=== PATIENT | female | born 1935 | race Two or more races ===

== ENCOUNTER 2016-08-04 10:59 | Inpatient (IN) | payer MEDICARE, MEDICAID ==
[~2016-08-04] VITALS: Ht 172.7 cm; Wt 84.7 kg
[~2016-08-04 10:59] MED LIST: CEFAZOLIN 1,000 MG ONE; DEXAMETHASONE 4 MG/ML, 1ML ONE; ONDANSETRON 2MG/ML, 2ML ONE; PROPOFOL 10 MG/ML, 20ML ONE; SUCCINYLCHOLINE 20 MG/ML, 10ML ONE
[2016-08-04] MEDS ORDERED: AMLO5TAB4 PO (11:14)
[2016-08-04] MEDS ORDERED: GABA100C8 PO (11:15)
[2016-08-04] MEDS ORDERED: ATOR40TA78 PO (11:15)
[2016-08-04] MEDS ORDERED: LISI-170 PO (11:16)
[2016-08-04] MEDS ORDERED: INSU100V8 SQ (11:16)
[2016-08-04] MEDS ORDERED: ONDANSETRON 2MG/ML, 2ML ONE (12:12)
[2016-08-04] MEDS ORDERED: MORPHINE SULFATE 4 MG/ML, 1ML ONE ×2 (12:13→13:19)
[2016-08-04] MEDS: MORPHINE SULFATE 4 MG/ML, 1ML IVPush PRN ×2 (12:26→13:21)
[2016-08-04] MEDS ORDERED: ONDANSETRON 2MG/ML, 2ML IVPush ONE (12:30)
[2016-08-04] MEDS ORDERED: SODIUM CHLORIDE FLUSH 10ML SYR IVF ONE (12:30)
[2016-08-04 12:31] LABS: BLOOD UREA NITROGEN 26 mg/dL (7-18)
[2016-08-04] MEDS: SODIUM CHLORIDE 0.9% 1,000ML IVBOLUS ONE ×2 (13:10→14:06)
[2016-08-04] MEDS ORDERED: PLEASE ENTER ALLERGIES MC SCH ×2 (13:30)
[2016-08-04] MEDS ORDERED: ENALAPRILAT 1.25 MG/ML, 2ML IVPush PRN (15:00)
[2016-08-04] MEDS ORDERED: ONDANSETRON ODT 4 MG PO PRN (15:00)
[2016-08-04] MEDS ORDERED: BISACODYL 10 MG SUPP PR PRN (15:00)
[2016-08-04] MEDS ORDERED: morphine SULFATE 10 MG/ML, 1ML IVPush PRN (15:00)
[2016-08-04] MEDS ORDERED: FENTANYL PF 100 MCG/2ML ONE ×2 (15:22→15:38)
[2016-08-04] MEDS ORDERED: OXYcodone 5 MG/5 ML ORAL.SOL UDC PO PRN (16:00)
[2016-08-04] MEDS ORDERED: HYDROmorphone 1 MG/ML, 1ML IV PRN (16:00)
[2016-08-04] MEDS ORDERED: MIDAZOLAM 1 MG/ML, 2ML IV PRN (16:00)
[2016-08-04] MEDS ORDERED: MEPERIDINE/PF 25MG/0.5ML IVPush PRN (16:00)
[2016-08-04] MEDS ORDERED: LABETALOL 5MG/ML, 20ML IV PRN (16:00)
[2016-08-04] MEDS ORDERED: ALBUTEROL SULFATE 2.5 MG/3 ML NPPB PRN (16:00)
[2016-08-04] MEDS ORDERED: FENTANYL PF 100 MCG/2ML IV PRN (16:00)
[2016-08-04] MEDS ORDERED: PROMETHAZINE 25 MG/ML, 1ML IV PRN (16:00)
[2016-08-04] MEDS ORDERED: hydrALAzine 20 MG/ML, 1ML IV PRN (16:00)
[2016-08-04] MEDS ORDERED: ACETAMINOPHEN 325 MG TABLET PO PRN (16:00)
[2016-08-04] MEDS ORDERED: ONDANSETRON 2MG/ML, 2ML IVPush PRN (16:00)
[2016-08-04] MEDS ORDERED: ACETAMINOPHEN 650 MG/20.3 ML UDC ONE (17:07)
[2016-08-04] MEDS ORDERED: OXYcodone 5 MG/5 ML ORAL.SOL UDC ONE (17:07)
[2016-08-04] MEDS ORDERED: MEPERIDINE/PF 25MG/0.5ML ONE (17:51)
[2016-08-04] MEDS: CEFAZOLIN PMX 1GM/50ML 50 ML IV SCH (20:06)
[2016-08-04] MEDS: D5%-0.45% NACL 1,000 ML IV SCH (20:06)
[2016-08-04 20:13] VITALS: BP 124/63
[2016-08-04] MEDS: ATORVASTATIN 40 MG TABLET PO SCH (22:13)
[2016-08-04] MEDS: GABAPENTIN 100 MG CAPSULE PO SCH (22:13)
[2016-08-04] MEDS: INSULIN DETEMIR 100 UNITS/ML, PEN SQ-INSULIN SCH (22:14)
[2016-08-05] MEDS: HYDROcodone/APAP 5/325 TABLET PO PRN ×4 (00:07→22:31)
[2016-08-05 00:20] VITALS: BP 116/68
[2016-08-05 04:01] VITALS: BP 95/60
[2016-08-05] MEDS: CEFAZOLIN PMX 1GM/50ML 50 ML IV SCH ×2 (04:04→12:28)
[2016-08-05 05:34] LABS: BLOOD UREA NITROGEN 28 mg/dL (7-18)
[2016-08-05] MEDS ORDERED: ENOXAPARIN 40 MG/0.4 ML SQ SCH (06:00)
[2016-08-05] MEDS: GABAPENTIN 100 MG CAPSULE PO SCH ×4 (06:14→22:01)
[2016-08-05] MEDS: D5%-0.45% NACL 1,000 ML IV SCH (07:00)
[2016-08-05 07:40] VITALS: BP 133/67
[2016-08-05] MEDS: DOCUSATE 100 MG CAPSULE PO PRN (09:32)
[2016-08-05] MEDS: AMLODIPINE 5 MG TABLET PO SCH (09:33)
[2016-08-05] MEDS: LISINOPRIL 20 MG TABLET PO SCH (09:33)
[2016-08-05] MEDS: CHOLECALCIFEROL 1,000 UNIT TABLET PO SCH (11:44)
[2016-08-05] MEDS: CALCIUM CARBONATE 500 MG TABLET PO SCH ×3 (11:44→22:01)
[2016-08-05] MEDS: INSULIN REGULAR 100 UNITS/ML, 3ML VIAL SQ-INSULIN SCH ×3 (11:45→22:32)
[2016-08-05 13:25] VITALS: BP 107/65
[2016-08-05 18:38] VITALS: BP 127/57
[2016-08-05] MEDS: ATORVASTATIN 40 MG TABLET PO SCH (22:01)
[2016-08-05] MEDS: INSULIN DETEMIR 100 UNITS/ML, PEN SQ-INSULIN SCH (22:32)
[2016-08-06 03:32] VITALS: BP 98/61
[2016-08-06] MEDS: GABAPENTIN 100 MG CAPSULE PO SCH ×4 (05:47→20:35)
[2016-08-06] MEDS: ENOXAPARIN 40 MG/0.4 ML SQ SCH (05:47)
[2016-08-06 07:05] VITALS: BP 101/56
[2016-08-06] MEDS: LISINOPRIL 20 MG TABLET PO SCH (08:47)
[2016-08-06] MEDS: HYDROcodone/APAP 5/325 TABLET PO PRN ×3 (08:47→23:02)
[2016-08-06] MEDS: CALCIUM CARBONATE 500 MG TABLET PO SCH ×3 (08:47→20:35)
[2016-08-06] MEDS: AMLODIPINE 5 MG TABLET PO SCH (08:47)
[2016-08-06] MEDS: CHOLECALCIFEROL 1,000 UNIT TABLET PO SCH (08:50)
[2016-08-06] MEDS: DOCUSATE 100 MG CAPSULE PO PRN (08:54)
[2016-08-06] MEDS: INSULIN REGULAR 100 UNITS/ML, 3ML VIAL SQ-INSULIN SCH ×4 (08:54→22:16)
[2016-08-06 12:45] VITALS: BP 109/66
[2016-08-06 17:57] LABS: PATH.CAST-FLAG NOT PRESENT; SPERM-FLAG NOT PRESENT; SRC-FLAG NOT PRESENT; XTAL-FLAG NOT PRESENT; YLC-FLAG NOT PRESENT
[2016-08-06] MEDS: ATORVASTATIN 40 MG TABLET PO SCH (20:35)
[2016-08-06 21:37] VITALS: BP 132/69
[2016-08-06] MEDS: INSULIN DETEMIR 100 UNITS/ML, PEN SQ-INSULIN SCH (22:17)
[2016-08-07] VITALS (14 sets, daily range): BP systolic 101–130; BP diastolic 50–72
[2016-08-07 05:19] LABS: BLOOD UREA NITROGEN 42 mg/dL (7-18); TOTAL IRON BINDING CAPACITY 323 mcg/dL (250-450)
[2016-08-07] MEDS: ENOXAPARIN 40 MG/0.4 ML SQ SCH (06:00)
[2016-08-07] MEDS: GABAPENTIN 100 MG CAPSULE PO SCH ×4 (06:27→21:55)
[2016-08-07] MEDS: HYDROcodone/APAP 5/325 TABLET PO PRN ×2 (06:27→15:39)
[2016-08-07] MEDS: INSULIN REGULAR 100 UNITS/ML, 3ML VIAL SQ-INSULIN SCH ×4 (07:00→22:02)
[2016-08-07] MEDS: CHOLECALCIFEROL 1,000 UNIT TABLET PO SCH (08:43)
[2016-08-07] MEDS: CALCIUM CARBONATE 500 MG TABLET PO SCH ×3 (08:43→21:55)
[2016-08-07] MEDS ORDERED: ACETAMINOPHEN 325 MG TABLET PO ONE (09:00)
[2016-08-07] MEDS: LISINOPRIL 20 MG TABLET PO SCH (09:00)
[2016-08-07] MEDS: AMLODIPINE 5 MG TABLET PO SCH (09:00)
[2016-08-07] MEDS: DOCUSATE 100 MG CAPSULE PO PRN (10:23)
[2016-08-07] MEDS ORDERED: MAGNESIUM HYDROXIDE 8%, 30ML UDC PO PRN (13:00)
[2016-08-07] MEDS: ATORVASTATIN 40 MG TABLET PO SCH (21:55)
[2016-08-07] MEDS: INSULIN DETEMIR 100 UNITS/ML, PEN SQ-INSULIN SCH (22:03)
[2016-08-08] MEDS: HYDROcodone/APAP 5/325 TABLET PO PRN ×3 (00:20→14:54)
[2016-08-08 02:51] VITALS: BP 129/73
[2016-08-08] MEDS: GABAPENTIN 100 MG CAPSULE PO SCH ×2 (06:16→11:42)
[2016-08-08] MEDS: ENOXAPARIN 40 MG/0.4 ML SQ SCH (06:16)
[2016-08-08] MEDS: INSULIN REGULAR 100 UNITS/ML, 3ML VIAL SQ-INSULIN SCH ×2 (06:19→11:42)
[2016-08-08] MEDS: CHOLECALCIFEROL 1,000 UNIT TABLET PO SCH (07:44)
[2016-08-08] MEDS: LISINOPRIL 20 MG TABLET PO SCH (07:44)
[2016-08-08] MEDS: CALCIUM CARBONATE 500 MG TABLET PO SCH (07:44)
[2016-08-08] MEDS: AMLODIPINE 5 MG TABLET PO SCH (07:44)
[2016-08-08 07:46] VITALS: BP 133/74
[2016-08-08 08:21] VITALS: BP 136/56
[2016-08-08] MEDS ORDERED: CALC-666 PO (10:28)
[2016-08-08] MEDS ORDERED: DOCU-30 PO (10:28)
[2016-08-08] MEDS ORDERED: CHOL10003 PO (10:28)
[2016-08-08] MEDS ORDERED: HYDR-3240 PO (10:28)
[2016-08-08] MEDS ORDERED: INSU100I28 SQ-INSULIN (10:28)
[2016-08-08] MEDS ORDERED: ENOX40SY4 SQ (10:28)
[2016-08-08] MEDS ORDERED: PNEUMOCOCCAL 23 VACCINE IM-VACC ONE (13:30)
[2016-08-08 14:30] VITALS: BP 116/66
== END 2016-08-08 15:40 | disposition home or self-care (01) | DRG 481 ==
LOC: ED 14:22 → ORIP 14:42 → 4NOR 18:08
PROVIDERS: ADMIT Internal Medicine; ATTEND Internal Medicine
PROC: 0QH636Z Insertion of Intramedullary Internal Fixation Device into Right Upper Femur, Percutaneous Approach (ICD-10-PCS; principal; 2016-08-04 17:15)
PROC: 30233N1 Transfusion of Nonautologous Red Blood Cells into Peripheral Vein, Percutaneous Approach (ICD-10-PCS; 2016-08-07)
DX: M80.051A Age-related osteoporosis with current pathological fracture, right femur, initial encounter for fracture (principal); R71.0 Precipitous drop in hematocrit; S72.141A Displaced intertrochanteric fracture of right femur, initial encounter for closed fracture; D72.829 Elevated white blood cell count, unspecified; E11.9 Type 2 diabetes mellitus without complications; E78.00 Pure hypercholesterolemia, unspecified; E78.5 Hyperlipidemia, unspecified; I10 Essential (primary) hypertension; Z79.4 Long term (current) use of insulin; W01.0XXA Fall on same level from slipping, tripping and stumbling without subsequent striking against object, initial encounter; Y93.89 Activity, other specified; Y92.89 Other specified places as the place of occurrence of the external cause; Y99.8 Other external cause status
CPT/HCPCS: 36415; 71010; 76000; 80048; 81001; 82040; 82962; 83540; 83550; 85025; 85610; 85730; 86850; 86900; 86923; 87086; 90732; 93005; 96361; 96374; 96375; 96376; C1713; J0690; J1100; J1650; J1815; J2175; J2405; J2704; J3010; J0330; J7030; P9016

== ENCOUNTER 2016-08-08 18:23 | Inpatient (IN) | payer MEDICARE, MEDICAID ==
[~2016-08-08] VITALS: Ht 172.7 cm; Wt 82.4 kg
[~2016-08-08 18:23] MED LIST changes: +AMLO5TAB4 PO; +ATOR40TA78 PO; +CALC-666 PO; -CEFAZOLIN 1,000 MG ONE; +CHOL10003 PO; -DEXAMETHASONE 4 MG/ML, 1ML ONE; +DOCU-30 PO; +ENOX40SY4 SQ; +GABA100C8 PO; +HYDR-3240 PO; +INSU100I28 SQ-INSULIN; +INSU100V8 SQ; +LISI-170 PO; -ONDANSETRON 2MG/ML, 2ML ONE; -PROPOFOL 10 MG/ML, 20ML ONE; -SUCCINYLCHOLINE 20 MG/ML, 10ML ONE
[2016-08-08] MEDS ORDERED: ONDANSETRON 2MG/ML, 2ML IVPush ONE (18:30)
[2016-08-08] MEDS ORDERED: SODIUM CHLORIDE 0.9% 1,000ML IVBOLUS ONE (18:30)
[2016-08-08] MEDS ORDERED: MORPHINE SULFATE 4 MG/ML, 1ML IVPush PRN (18:30)
[2016-08-08] MEDS ORDERED: SODIUM CHLORIDE FLUSH 10ML SYR IVF ONE (18:30)
[2016-08-08] MEDS ORDERED: ACETAMINOPHEN 325 MG TABLET PO ONE (18:30)
[2016-08-08] MEDS ORDERED: PLEASE ENTER HEIGHT AND WEIGHT MC SCH (19:00)
[2016-08-08 19:05] LABS: ASPARTATE AMINO TRANSFERASE 27 U/L (15-37); BLOOD UREA NITROGEN 27 mg/dL (7-18)
[2016-08-08] MEDS ORDERED: ACETAMINOPHEN 325 MG TABLET ONE (19:15)
[2016-08-08] MEDS ORDERED: MORPHINE SULFATE 4 MG/ML, 1ML ONE (19:15)
[2016-08-08] MEDS ORDERED: ONDANSETRON 2MG/ML, 2ML ONE (19:16)
[2016-08-08] MEDS ORDERED: SODIUM CHLORIDE 0.9% 1,000 ML IV ONE (20:21)
[2016-08-08] MEDS ORDERED: VANCOMYCIN PER PHARMACY MC ONE (20:30)
[2016-08-08] MEDS ORDERED: PIPERACILLIN/TAZO 3.375 GM in SODIUM CHLORIDE 0.9% 50 ML IVPB ONE (20:30)
[2016-08-08] MEDS ORDERED: VANCOMYCIN 1,400 MG in SODIUM CHLORIDE 0.9% 250 ML IV ONE (20:30)
[2016-08-08] MEDS ORDERED: PIPERACILLIN/TAZO/PMX 3.375GM 50 ML ONE (20:46)
[2016-08-08] MEDS ORDERED: morphine SULFATE 10 MG/ML, 1ML IVPush PRN (21:00)
[2016-08-08] MEDS ORDERED: ACETAMINOPHEN 325 MG TABLET PO PRN (21:00)
[2016-08-08] MEDS: PIPERACILLIN/TAZO 3.375 GM in SODIUM CHLORIDE 0.9% 50 ML IV SCH (21:00)
[2016-08-08] MEDS ORDERED: ONDANSETRON 2MG/ML, 2ML IVPush PRN (21:00)
[2016-08-08] MEDS ORDERED: VANCOMYCIN PER PHARMACY MC PRN (21:00)
[2016-08-08] MEDS ORDERED: BISACODYL 10 MG SUPP PR PRN (21:00)
[2016-08-08] MEDS ORDERED: POLYETHYLENE GLYCOL 17 GM PACKET PO PRN (21:00)
[2016-08-08 22:00] VITALS: BP 122/64
[2016-08-08] MEDS ORDERED: PHARMACOKINETIC CONSULTATION MC ONE (22:30)
[2016-08-08] MEDS ORDERED: PHARMACOKINETIC MONITORING MC PRN (22:30)
[2016-08-08] MEDS: SODIUM CHLORIDE 0.9% 1,000 ML IV SCH (22:31)
[2016-08-08] MEDS: HYDROcodone/APAP 5/325 TABLET PO PRN (22:42)
[2016-08-08] MEDS ORDERED: OMNIPAQUE 350 MG/ML, 100ML BOTTLE ONE (23:24)
[2016-08-09] MEDS: HEPARIN 5,000 UNITS/ML, 1ML SQ SCH ×4 (00:03→23:52)
[2016-08-09] MEDS: ATORVASTATIN 40 MG TABLET PO SCH ×2 (00:03→20:39)
[2016-08-09] MEDS: INSULIN DETEMIR 100 UNITS/ML, PEN SQ-INSULIN SCH ×2 (00:03→20:40)
[2016-08-09] MEDS: GABAPENTIN 100 MG CAPSULE PO SCH ×5 (00:03→20:39)
[2016-08-09] MEDS: CALCIUM CARBONATE 500 MG TABLET PO SCH ×4 (00:03→20:39)
[2016-08-09] MEDS: HYDROcodone/APAP 5/325 TABLET PO PRN ×4 (03:44→20:39)
[2016-08-09] MEDS: PIPERACILLIN/TAZO 3.375 GM in SODIUM CHLORIDE 0.9% 50 ML IV SCH ×3 (03:45→16:00)
[2016-08-09 05:22] VITALS: BP 110/52
[2016-08-09 05:50] LABS: ASPARTATE AMINO TRANSFERASE 99 U/L (15-37); BLOOD UREA NITROGEN 25 mg/dL (7-18)
[2016-08-09 07:02] VITALS: BP 107/64
[2016-08-09] MEDS: AMLODIPINE 5 MG TABLET PO SCH (08:03)
[2016-08-09] MEDS: LISINOPRIL 20 MG TABLET PO SCH (08:04)
[2016-08-09] MEDS: SENNA/DOCUSATE TABLET PO SCH (08:43)
[2016-08-09] MEDS: CHOLECALCIFEROL 1,000 UNIT TABLET PO SCH (08:43)
[2016-08-09 15:00] VITALS: BP 135/63
[2016-08-09] MEDS: SODIUM CHLORIDE 0.9% 1,000 ML IV SCH ×2 (15:05→23:52)
[2016-08-09 19:42] VITALS: BP 142/67
[2016-08-09] MEDS ORDERED: VANCOMYCIN 1,400 MG in SODIUM CHLORIDE 0.9% 250 ML IV SCH (22:00)
[2016-08-10 01:38] VITALS: BP 137/62
[2016-08-10] MEDS: HYDROcodone/APAP 5/325 TABLET PO PRN ×3 (04:22→21:01)
[2016-08-10 05:00] LABS: BLOOD UREA NITROGEN 22 mg/dL (7-18)
[2016-08-10] MEDS: GABAPENTIN 100 MG CAPSULE PO SCH ×4 (05:40→21:01)
[2016-08-10 08:30] VITALS: BP 127/74
[2016-08-10] MEDS: CALCIUM CARBONATE 500 MG TABLET PO SCH ×3 (09:00→21:01)
[2016-08-10] MEDS: SENNA/DOCUSATE TABLET PO SCH (09:00)
[2016-08-10] MEDS: AMLODIPINE 5 MG TABLET PO SCH (09:01)
[2016-08-10] MEDS: CHOLECALCIFEROL 1,000 UNIT TABLET PO SCH (09:01)
[2016-08-10] MEDS: HEPARIN 5,000 UNITS/ML, 1ML SQ SCH ×2 (09:01→16:12)
[2016-08-10] MEDS: LISINOPRIL 20 MG TABLET PO SCH (09:01)
[2016-08-10] MEDS: SODIUM CHLORIDE 0.9% 1,000 ML IV SCH (10:08)
[2016-08-10 14:32] VITALS: BP 138/71
[2016-08-10 19:59] VITALS: BP 161/76
[2016-08-10] MEDS: ATORVASTATIN 40 MG TABLET PO SCH (21:01)
[2016-08-10] MEDS: INSULIN DETEMIR 100 UNITS/ML, PEN SQ-INSULIN SCH (21:03)
[2016-08-11 02:00] VITALS: BP 130/83
[2016-08-11] MEDS: HEPARIN 5,000 UNITS/ML, 1ML SQ SCH (05:26)
[2016-08-11] MEDS: GABAPENTIN 100 MG CAPSULE PO SCH (05:26)
[2016-08-11 07:17] VITALS: BP 125/65
[2016-08-11] MEDS ORDERED: CLIN300C93 PO (07:49)
[2016-08-11] MEDS: CLINDAMYCIN 300 MG CAPSULE PO SCH ×2 (08:13→11:44)
[2016-08-11] MEDS: CHOLECALCIFEROL 1,000 UNIT TABLET PO SCH (08:14)
[2016-08-11] MEDS: AMLODIPINE 5 MG TABLET PO SCH (08:14)
[2016-08-11] MEDS: CALCIUM CARBONATE 500 MG TABLET PO SCH (08:14)
[2016-08-11] MEDS: SENNA/DOCUSATE TABLET PO SCH (08:14)
[2016-08-11] MEDS: LISINOPRIL 20 MG TABLET PO SCH (08:14)
[2016-08-11] MEDS: HYDROcodone/APAP 5/325 TABLET PO PRN (11:44)
== END 2016-08-11 11:53 | DRG 862 ==
LOC: ED 19:20 → EDIP 20:44 → 3NW 21:55
PROVIDERS: ADMIT Hospitalist; ATTEND Hospitalist
PROC: 0T9B70Z Drainage of Bladder with Drainage Device, Via Natural or Artificial Opening (ICD-10-PCS; principal; 2016-08-08)
DX: T81.4XXA Infection following a procedure, initial encounter (principal); A41.9 Sepsis, unspecified organism; R65.20 Severe sepsis without septic shock; R17 Unspecified jaundice; E44.0 Moderate protein-calorie malnutrition; D64.9 Anemia, unspecified; E11.42 Type 2 diabetes mellitus with diabetic polyneuropathy; E78.5 Hyperlipidemia, unspecified; G89.18 Other acute postprocedural pain; I10 Essential (primary) hypertension; M10.9 Gout, unspecified; N32.89 Other specified disorders of bladder; M79.674 Pain in right toe(s); R33.9 Retention of urine, unspecified; Z79.4 Long term (current) use of insulin
CPT/HCPCS: 36415; 71010; 80048; 80053; 81003; 82962; 83605; 84145; 84550; 85014; 85018; 85025; 85610; 85651; 86140; 87040; 93005; 96365; 96375; J1644; J2405; J2543; J3370; Q9967; J1815; J2270; J7030; J7050

== ENCOUNTER 2016-08-25 15:22 | Inpatient (IN) | payer MEDICARE, MEDICAID ==
[~2016-08-25] VITALS: Ht 167.6 cm; Wt 82.1 kg
[~2016-08-25 15:22] MED LIST changes: +CLIN300C93 PO; +GABA-826 PO; -GABA100C8 PO
[2016-08-25] MEDS ORDERED: SODIUM CHLORIDE 0.9% 1,000ML IVBOLUS ONE (16:30)
[2016-08-25] MEDS ORDERED: SODIUM CHLORIDE FLUSH 10ML SYR IVF ONE (16:30)
[2016-08-25 17:01] LABS: ASPARTATE AMINO TRANSFERASE 40 U/L (15-37); BLOOD UREA NITROGEN 36 mg/dL (7-18)
[2016-08-25 17:13] LABS: DIFF TOTAL CELLS COUNTED 100 CELL DIFF
[2016-08-25 17:20] LABS: ANISOCYTOSIS 2+; HYPOCHROMIA 1+; MICROCYTOSIS 1+
[2016-08-25 17:23] LABS: VERIFY COUNTS? YES
[2016-08-25] MEDS ORDERED: VANCOMYCIN PER PHARMACY MC ONE (18:00)
[2016-08-25] MEDS ORDERED: CEFTRIAXONE PMX 1GM/50ML 50 ML IVPB ONE (18:00)
[2016-08-25] MEDS ORDERED: CEFTRIAXONE PMX 1GM/50ML 50 ML ONE (18:26)
[2016-08-25] MEDS ORDERED: PHENYLEPHRINE 20 MG in SODIUM CHLORIDE 0.9% 248 ML IV PRN (18:28)
[2016-08-25] MEDS ORDERED: PHARMACOKINETIC CONSULTATION MC ONE (18:30)
[2016-08-25] MEDS ORDERED: VANCOMYCIN 1,600 MG in SODIUM CHLORIDE 0.9% 250 ML IV ONE (18:30)
[2016-08-25] MEDS ORDERED: NOREPINEPHRINE 4 MG in SODIUM CHLORIDE 0.9% 246 ML IV PRN (19:00)
[2016-08-25] MEDS ORDERED: TRAZODONE 50MG TABLET PO PRN (20:00)
[2016-08-25] MEDS ORDERED: BISACODYL 10 MG SUPP PR PRN (20:00)
[2016-08-25] MEDS ORDERED: ONDANSETRON ODT 4 MG PO PRN (20:00)
[2016-08-25] MEDS ORDERED: ACETAMINOPHEN 325 MG TABLET PO PRN (20:00)
[2016-08-25] MEDS ORDERED: DOCUSATE 100 MG CAPSULE PO PRN (20:00)
[2016-08-25] MEDS ORDERED: hydrALAzine 20 MG/ML, 1ML IVPush PRN (20:00)
[2016-08-25] MEDS ORDERED: PIPERACILLIN/TAZO 3.375 GM in SODIUM CHLORIDE 0.9% 50 ML IV SCH (20:00)
[2016-08-25] MEDS ORDERED: POLYETHYLENE GLYCOL 17 GM PACKET PO PRN (20:00)
[2016-08-25] MEDS ORDERED: PIPERACILLIN/TAZO/PMX 3.375GM 50 ML ONE ×2 (20:13→20:14)
[2016-08-25] MEDS ORDERED: ALBUTEROL SULFATE 2.5 MG/3 ML NPPB PRN (20:30)
[2016-08-25] MEDS ORDERED: RACEPINEPHRINE INH 2.25%, 0.5ML NPPB PRN (20:30)
[2016-08-25] MEDS ORDERED: INSULIN DETEMIR 100 UNITS/ML, PEN SQ-INSULIN SCH (21:00)
[2016-08-25] MEDS: INSULIN ASPART 100 UNITS/ML, PEN SQ-INSULIN SCH (21:00)
[2016-08-25 21:37] VITALS: BP 111/65
[2016-08-25] MEDS ORDERED: PIPERACILLIN/TAZO/PMX 2.25GM 50 ML IV SCH (21:37)
[2016-08-25] MEDS: PIPERACILLIN/TAZO/PMX 2.25GM 50 ML IV SCH (21:41)
[2016-08-25] MEDS: SODIUM CHLORIDE 0.9% 1,000 ML IV SCH (22:32)
[2016-08-25] MEDS: ATORVASTATIN 40 MG TABLET PO SCH (22:46)
[2016-08-25] MEDS: CALCIUM CARBONATE 500 MG TABLET PO SCH (22:46)
[2016-08-25] MEDS: GABAPENTIN 100 MG CAPSULE PO SCH (22:46)
[2016-08-25] MEDS: HEPARIN 5,000 UNITS/ML, 1ML SQ SCH (22:46)
[2016-08-26 00:25] VITALS: BP 68/32
[2016-08-26 00:35] VITALS: BP 70/40
[2016-08-26 00:50] VITALS: BP 66/41
[2016-08-26] MEDS ORDERED: SODIUM CHLORIDE 0.9% 1,000ML IVBOLUS ONE (01:00)
[2016-08-26 01:15] VITALS: BP 72/36
[2016-08-26] MEDS ORDERED: DEXTROSE 4 GM TAB.CHEW PO PRN (01:30)
[2016-08-26] MEDS ORDERED: GLUCAGON 1 MG IM PRN (01:30)
[2016-08-26] MEDS ORDERED: DEXTROSE 50%, 50ML SYRINGE IVPush PRN (01:30)
[2016-08-26] MEDS ORDERED: NOREPINEPHRINE 4 MG in SODIUM CHLORIDE 0.9% 246 ML IV PRN (02:00)
[2016-08-26] MEDS: SODIUM CHLORIDE 0.9% 1,000 ML IV SCH ×4 (03:30→22:00)
[2016-08-26] MEDS ORDERED: NOREPINEPHRINE 16 MG in SODIUM CHLORIDE 0.9% 246 ML IV PRN (04:00)
[2016-08-26] MEDS: NOREPINEPHRINE 16 MG in SODIUM CHLORIDE 0.9% 234 ML IV PRN ×2 (05:25→17:05)
[2016-08-26] MEDS: PIPERACILLIN/TAZO/PMX 2.25GM 50 ML IV SCH ×4 (05:38→21:26)
[2016-08-26 06:31] LABS: ASPARTATE AMINO TRANSFERASE 74 U/L (15-37); BLOOD UREA NITROGEN 39 mg/dL (7-18)
[2016-08-26] MEDS: HEPARIN 5,000 UNITS/ML, 1ML SQ SCH ×3 (06:34→21:19)
[2016-08-26] MEDS: GABAPENTIN 100 MG CAPSULE PO SCH ×4 (06:34→21:19)
[2016-08-26] MEDS: INSULIN ASPART 100 UNITS/ML, PEN SQ-INSULIN SCH ×4 (06:34→21:23)
[2016-08-26 07:11] LABS: DIFF TOTAL CELLS COUNTED 100 CELL DIFF
[2016-08-26 07:17] LABS: ANISOCYTOSIS 2+; MICROCYTOSIS 1+; VERIFY COUNTS? YES
[2016-08-26] MEDS ORDERED: POTASSIUM CHLORIDE 20 MEQ TAB.ER.PRT PO ONE (08:00)
[2016-08-26] MEDS ORDERED: MAGNESIUM SULFATE PMX 2GM/50ML 50 ML IV ONE (08:00)
[2016-08-26] MEDS: SODIUM CHLORIDE FLUSH 10ML SYR IVF SCH ×2 (10:15→21:19)
[2016-08-26] MEDS: CALCIUM CARBONATE 500 MG TABLET PO SCH ×3 (10:15→21:19)
[2016-08-26] MEDS: CHOLECALCIFEROL 1,000 UNIT TABLET PO SCH (10:15)
[2016-08-26] MEDS: INSULIN DETEMIR 100 UNITS/ML, PEN SQ-INSULIN SCH ×2 (10:32→21:20)
[2016-08-26] MEDS: ATORVASTATIN 40 MG TABLET PO SCH (21:19)
[2016-08-26] MEDS: HYDROcodone/APAP 5/325 TABLET PO PRN (21:20)
[2016-08-27] MEDS: SODIUM CHLORIDE 0.9% 1,000 ML IV SCH (05:02)
[2016-08-27] MEDS: HEPARIN 5,000 UNITS/ML, 1ML SQ SCH ×3 (05:02→21:34)
[2016-08-27] MEDS: PIPERACILLIN/TAZO/PMX 2.25GM 50 ML IV SCH ×4 (05:02→21:34)
[2016-08-27 05:06] LABS: BLOOD UREA NITROGEN 33 mg/dL (7-18)
[2016-08-27 05:56] LABS: DIFF TOTAL CELLS COUNTED 100 CELL DIFF
[2016-08-27 05:59] LABS: ANISOCYTOSIS 2+; ECHINOCYTES 1+; VERIFY COUNTS? YES
[2016-08-27 06:00] LABS: MICROCYTOSIS 1+
[2016-08-27] MEDS: GABAPENTIN 100 MG CAPSULE PO SCH ×4 (06:30→21:34)
[2016-08-27] MEDS: INSULIN ASPART 100 UNITS/ML, PEN SQ-INSULIN SCH ×4 (07:00→21:38)
[2016-08-27] MEDS ORDERED: FUROSEMIDE 20 MG/2 ML IV ONE ×2 (09:00→17:00)
[2016-08-27] MEDS: SODIUM CHLORIDE FLUSH 10ML SYR IVF SCH ×2 (09:14→21:34)
[2016-08-27] MEDS: CALCIUM CARBONATE 500 MG TABLET PO SCH ×3 (09:15→21:34)
[2016-08-27] MEDS: CHOLECALCIFEROL 1,000 UNIT TABLET PO SCH (09:15)
[2016-08-27] MEDS: INSULIN DETEMIR 100 UNITS/ML, PEN SQ-INSULIN SCH ×2 (09:18→21:38)
[2016-08-27] MEDS: HYDROcodone/APAP 5/325 TABLET PO PRN ×2 (12:20→17:33)
[2016-08-27] MEDS ORDERED: POTASSIUM CHLORIDE 20 MEQ TAB.ER.PRT PO ONE (14:30)
[2016-08-27] MEDS: ATORVASTATIN 40 MG TABLET PO SCH (21:34)
[2016-08-28] MEDS: PIPERACILLIN/TAZO/PMX 2.25GM 50 ML IV SCH (04:35)
[2016-08-28] MEDS: HEPARIN 5,000 UNITS/ML, 1ML SQ SCH ×3 (06:14→23:57)
[2016-08-28] MEDS: GABAPENTIN 100 MG CAPSULE PO SCH ×4 (06:14→21:38)
[2016-08-28] MEDS: INSULIN ASPART 100 UNITS/ML, PEN SQ-INSULIN SCH ×4 (07:00→21:00)
[2016-08-28 08:09] LABS: BLOOD UREA NITROGEN 35 mg/dL (7-18)
[2016-08-28 08:20] LABS: DIFF TOTAL CELLS COUNTED 100 CELL DIFF
[2016-08-28 08:22] LABS: VERIFY COUNTS? YES
[2016-08-28] MEDS: INSULIN DETEMIR 100 UNITS/ML, PEN SQ-INSULIN SCH ×3 (08:22→21:39)
[2016-08-28] MEDS: SODIUM CHLORIDE FLUSH 10ML SYR IVF SCH ×2 (08:22→21:37)
[2016-08-28 08:23] LABS: ANISOCYTOSIS 2+; MICROCYTOSIS 1+
[2016-08-28] MEDS: CHOLECALCIFEROL 1,000 UNIT TABLET PO SCH (08:23)
[2016-08-28] MEDS: CALCIUM CARBONATE 500 MG TABLET PO SCH ×3 (08:23→21:38)
[2016-08-28] MEDS ORDERED: CEFTRIAXONE 1,000 MG in SODIUM CHLORIDE 0.9% 50 ML IV SCH (10:00)
[2016-08-28 14:56] VITALS: BP 142/84
[2016-08-28 20:00] VITALS: BP 161/73
[2016-08-28] MEDS: ATORVASTATIN 40 MG TABLET PO SCH (21:38)
[2016-08-28] MEDS: HYDROcodone/APAP 5/325 TABLET PO PRN (23:58)
[2016-08-29 01:50] VITALS: BP 150/74
[2016-08-29 05:31] LABS: BLOOD UREA NITROGEN 29 mg/dL (7-18)
[2016-08-29] MEDS: GABAPENTIN 100 MG CAPSULE PO SCH ×4 (05:31→22:00)
[2016-08-29] MEDS: INSULIN ASPART 100 UNITS/ML, PEN SQ-INSULIN SCH ×4 (07:00→22:02)
[2016-08-29 07:30] VITALS: BP 160/89
[2016-08-29] MEDS: CEFTRIAXONE PMX 1GM/50ML 50 ML IV SCH (09:30)
[2016-08-29] MEDS: CALCIUM CARBONATE 500 MG TABLET PO SCH ×3 (09:30→22:00)
[2016-08-29] MEDS: HEPARIN 5,000 UNITS/ML, 1ML SQ SCH ×2 (09:30→18:08)
[2016-08-29] MEDS: CHOLECALCIFEROL 1,000 UNIT TABLET PO SCH (09:30)
[2016-08-29] MEDS: INSULIN DETEMIR 100 UNITS/ML, PEN SQ-INSULIN SCH ×2 (09:31→22:01)
[2016-08-29] MEDS: SODIUM CHLORIDE FLUSH 10ML SYR IVF SCH ×2 (09:32→22:17)
[2016-08-29] MEDS: PHENAZOPYRIDINE 100 MG TABLET PO SCH ×3 (11:53→22:00)
[2016-08-29 16:26] VITALS: BP 160/76
[2016-08-29 19:59] VITALS: BP_SYST 169; BP_SYST 183; BP_DIAS 75; BP_DIAS 90
[2016-08-29] MEDS: HYDROcodone/APAP 5/325 TABLET PO PRN (20:26)
[2016-08-29] MEDS ORDERED: DEXTROSE 50%, 50ML SYRINGE IVPush PRN (20:30)
[2016-08-29] MEDS ORDERED: DOCUSATE 100 MG CAPSULE PO PRN (20:30)
[2016-08-29] MEDS ORDERED: ALBUTEROL SULFATE 2.5 MG/3 ML NPPB PRN (20:30)
[2016-08-29] MEDS ORDERED: POLYETHYLENE GLYCOL 17 GM PACKET PO PRN (20:30)
[2016-08-29 21:24] VITALS: BP 154/75
[2016-08-29] MEDS: ATORVASTATIN 40 MG TABLET PO SCH (22:00)
[2016-08-30 01:21] VITALS: BP_SYST 160; BP_SYST 181; BP_DIAS 82; BP_DIAS 83
[2016-08-30] MEDS: HEPARIN 5,000 UNITS/ML, 1ML SQ SCH ×2 (01:38→10:02)
[2016-08-30 02:37] VITALS: BP 154/73
[2016-08-30] MEDS: GABAPENTIN 100 MG CAPSULE PO SCH ×2 (05:32→11:39)
[2016-08-30 06:04] LABS: BLOOD UREA NITROGEN 21 mg/dL (7-18)
[2016-08-30 06:44] LABS: DIFF TOTAL CELLS COUNTED 100 CELL DIFF
[2016-08-30 06:45] VITALS: BP 158/70
[2016-08-30 06:45] LABS: VERIFY COUNTS? YES
[2016-08-30 06:47] LABS: ANISOCYTOSIS 1+
[2016-08-30] MEDS: INSULIN ASPART 100 UNITS/ML, PEN SQ-INSULIN SCH ×2 (07:00→11:39)
[2016-08-30] MEDS ORDERED: POTASSIUM CHLORIDE 20 MEQ TAB.ER.PRT PO ONE (08:00)
[2016-08-30] MEDS: CALCIUM CARBONATE 500 MG TABLET PO SCH (08:25)
[2016-08-30] MEDS: SODIUM CHLORIDE FLUSH 10ML SYR IVF SCH (08:25)
[2016-08-30] MEDS: PHENAZOPYRIDINE 100 MG TABLET PO SCH (08:26)
[2016-08-30] MEDS: CHOLECALCIFEROL 1,000 UNIT TABLET PO SCH (08:26)
[2016-08-30] MEDS: INSULIN DETEMIR 100 UNITS/ML, PEN SQ-INSULIN SCH (08:27)
[2016-08-30] MEDS ORDERED: CIPR500T87 PO (09:02)
[2016-08-30] MEDS ORDERED: PHEN-490 PO (09:02)
[2016-08-30] MEDS: CEFTRIAXONE PMX 1GM/50ML 50 ML IV SCH (10:00)
[2016-08-30 12:45] VITALS: BP 168/73
[2016-08-30] MEDS ORDERED: GUAI200T3 PO (12:46)
[2016-08-30] MEDS ORDERED: GUAIFENESIN ER 600 MG TABLET PO SCH (13:00)
[2016-08-30] MEDS ORDERED: HYDROcodone/APAP 5/325 TABLET ONE (13:08)
[2016-08-30] MEDS: HYDROcodone/APAP 5/325 TABLET PO PRN (13:10)
== END 2016-08-30 13:06 | DRG 871 ==
LOC: ED 16:45 → EDIP 19:42 → 4WST 21:25 → CCU 08-26 01:27 → 3NE 08-28 14:21
PROVIDERS: ADMIT Internal Medicine; ATTEND Internal Medicine
PROC: 0T9B70Z Drainage of Bladder with Drainage Device, Via Natural or Artificial Opening (ICD-10-PCS; principal; 2016-08-25)
DX: A41.9 Sepsis, unspecified organism (principal); E43 Unspecified severe protein-calorie malnutrition; R65.21 Severe sepsis with septic shock; N17.9 Acute kidney failure, unspecified; N39.0 Urinary tract infection, site not specified; E78.5 Hyperlipidemia, unspecified; M19.90 Unspecified osteoarthritis, unspecified site; Z68.29 Body mass index [BMI] 29.0-29.9, adult; D63.1 Anemia in chronic kidney disease; E11.22 Type 2 diabetes mellitus with diabetic chronic kidney disease; E11.40 Type 2 diabetes mellitus with diabetic neuropathy, unspecified; I12.9 Hypertensive chronic kidney disease with stage 1 through stage 4 chronic kidney disease, or unspecified chronic kidney disease; N18.9 Chronic kidney disease, unspecified
CPT/HCPCS: 36415; 36556; 71010; 80048; 80053; 81001; 82962; 83036; 83605; 83735; 83880; 84145; 84439; 84443; 85025; 87040; 87077; 87081; 87086; 87186; 87324; 93005; 93306; 94640; 96361; 96365; 96375; J0696; J1644; J1815; J2543; J3370; J7613; J0360; J1940; J3475; J7030; J7050

== ENCOUNTER 2016-09-21 08:37 | Emergency (ER) | payer MEDICARE, MEDICAID ==
[~2016-09-21] VITALS: Ht 154.9 cm; Wt 67.5 kg
[~2016-09-21 08:37] MED LIST changes: +CIPR500T87 PO; +GUAI200T3 PO; +PHEN-490 PO
[2016-09-21] MEDS ORDERED: SODIUM CHLORIDE FLUSH 10ML SYR IVF ONE (09:30)
[2016-09-21] MEDS ORDERED: SODIUM CHLORIDE 0.9% 1,000ML IVBOLUS ONE ×2 (09:30→11:00)
[2016-09-21 10:09] LABS: BLOOD UREA NITROGEN 40 mg/dL (7-18)
[2016-09-21 10:13] LABS: ASPARTATE AMINO TRANSFERASE 20 U/L (15-37)
[2016-09-21] MEDS ORDERED: INSULIN REGULAR 100 UNITS/ML, 3ML VIAL IVPush ONE (11:30)
[2016-09-21] MEDS ORDERED: INSULIN SINGLE DOSE, ER SQ-INSULIN ONE (13:28)
[2016-09-21 16:02] VITALS: BP 133/65
== END 2016-09-21 16:05 | disposition home or self-care (01) ==
LOC: ED 14:28
DX: K59.00 Constipation, unspecified (principal); E11.65 Type 2 diabetes mellitus with hyperglycemia; E78.5 Hyperlipidemia, unspecified; I10 Essential (primary) hypertension; Z79.4 Long term (current) use of insulin
CPT/HCPCS: 36415; 74022; 80053; 82962; 83605; 85025; 93005; 96361; 96374; 99285; J1815; J7030

== ENCOUNTER 2016-10-14 15:08 | Inpatient (IN) | payer MEDICARE, MEDICAID ==
[~2016-10-14] VITALS: Ht 167.6 cm; Wt 71.3 kg
[2016-10-14] MEDS ORDERED: ACETAMINOPHEN 500 MG TABLET ONE (15:29)
[2016-10-14] MEDS ORDERED: ACETAMINOPHEN 500 MG TABLET PO ONE (15:30)
[2016-10-14] MEDS ORDERED: SODIUM CHLORIDE 0.9% 1,000ML IVBOLUS ONE (15:30)
[2016-10-14] MEDS ORDERED: SODIUM CHLORIDE FLUSH 10ML SYR IVF ONE (15:30)
[2016-10-14 16:04] LABS: HEMATOCRIT 35.3 % (34.6-47.8); HEMOGLOBIN 11.1 g/dL (11.7-16.4); WHITE BLOOD COUNT 18.4 x10^3/uL (3.4-10)
[2016-10-14] MEDS ORDERED: METF500T4 PO (16:17)
[2016-10-14 16:18] LABS: ASPARTATE AMINO TRANSFERASE 16 U/L (15-37); BLOOD UREA NITROGEN 28 mg/dL (7-18)
[2016-10-14 16:22] LABS: DIFF TOTAL CELLS COUNTED 100 CELL DIFF
[2016-10-14 16:23] LABS: VERIFY COUNTS? YES
[2016-10-14 16:24] LABS: ANISOCYTOSIS 1+
[2016-10-14] MEDS ORDERED: CEFTRIAXONE PMX 2GM/50ML 50 ML IV ONE (19:00)
[2016-10-14] MEDS ORDERED: AZITHROMYCIN 500 MG in SODIUM CHLORIDE 0.9% 250 ML IV ONE (19:00)
[2016-10-14] MEDS ORDERED: CEFTRIAXONE PMX 1GM/50ML 50 ML ONE (19:08)
[2016-10-14] MEDS ORDERED: CEFTRIAXONE PMX 2GM/50ML 50 ML ONE (19:17)
[2016-10-14] MEDS ORDERED: ACETAMINOPHEN 325 MG TABLET PO PRN (19:30)
[2016-10-14] MEDS ORDERED: ONDANSETRON 2MG/ML, 2ML IVPush PRN (19:30)
[2016-10-14] MEDS ORDERED: DEXTROSE 50%, 50ML SYRINGE IVPush PRN (19:30)
[2016-10-14] MEDS ORDERED: DEXTROSE 4 GM TAB.CHEW PO PRN (19:30)
[2016-10-14] MEDS ORDERED: BISACODYL 10 MG SUPP PR PRN (19:30)
[2016-10-14] MEDS ORDERED: GLUCAGON 1 MG IM PRN (19:30)
[2016-10-14] MEDS ORDERED: POLYETHYLENE GLYCOL 17 GM PACKET PO PRN (19:30)
[2016-10-14] MEDS: AZITHROMYCIN 500 MG in SODIUM CHLORIDE 0.9% 250 ML IV SCH (20:55)
[2016-10-14] MEDS: SODIUM CHLORIDE 0.9% 1,000 ML IV SCH (20:55)
[2016-10-14] MEDS: SODIUM CHLORIDE FLUSH 10ML SYR IVF SCH (21:00)
[2016-10-14] MEDS: HEPARIN 5,000 UNITS/ML, 1ML SQ SCH (21:29)
[2016-10-14] MEDS: GABAPENTIN 100 MG CAPSULE PO SCH (21:29)
[2016-10-14] MEDS: INSULIN ASPART 100 UNITS/ML, PEN SQ-INSULIN SCH (21:30)
[2016-10-15 03:38] VITALS: BP 113/72
[2016-10-15] MEDS: OXYcodone IR 5MG TABLET PO PRN ×3 (03:41→15:09)
[2016-10-15 05:28] LABS: HEMATOCRIT 32.7 % (34.6-47.8); HEMOGLOBIN 10.6 g/dL (11.7-16.4); WHITE BLOOD COUNT 19.8 x10^3/uL (3.4-10)
[2016-10-15 05:59] LABS: BLOOD UREA NITROGEN 20 mg/dL (7-18)
[2016-10-15 06:03] LABS: ASPARTATE AMINO TRANSFERASE 10 U/L (15-37)
[2016-10-15] MEDS: SODIUM CHLORIDE 0.9% 1,000 ML IV SCH ×2 (06:17→11:43)
[2016-10-15] MEDS: GABAPENTIN 100 MG CAPSULE PO SCH ×4 (06:26→21:25)
[2016-10-15] MEDS: HEPARIN 5,000 UNITS/ML, 1ML SQ SCH ×3 (06:26→23:13)
[2016-10-15 08:09] VITALS: BP 113/70
[2016-10-15] MEDS: INSULIN ASPART 100 UNITS/ML, PEN SQ-INSULIN SCH ×4 (08:31→21:26)
[2016-10-15] MEDS: SODIUM CHLORIDE FLUSH 10ML SYR IVF SCH ×2 (08:31→21:25)
[2016-10-15] MEDS: SENNA/DOCUSATE TABLET PO SCH (08:31)
[2016-10-15 13:13] VITALS: BP 136/71
[2016-10-15] MEDS: CEFTRIAXONE PMX 1GM/50ML 50 ML IV SCH (18:01)
[2016-10-15 20:34] VITALS: BP 110/70
[2016-10-15] MEDS: AZITHROMYCIN 500 MG in SODIUM CHLORIDE 0.9% 250 ML IV SCH (21:25)
[2016-10-15] MEDS: INSULIN DETEMIR 100 UNITS/ML, PEN SQ-INSULIN SCH (21:26)
[2016-10-16] MEDS: SODIUM CHLORIDE 0.9% 1,000 ML IV SCH ×3 (01:01→18:02)
[2016-10-16 02:25] VITALS: BP 113/63
[2016-10-16 05:42] LABS: HEMATOCRIT 30.9 % (34.6-47.8); HEMOGLOBIN 9.8 g/dL (11.7-16.4); WHITE BLOOD COUNT 15.2 x10^3/uL (3.4-10)
[2016-10-16 05:45] LABS: BLOOD UREA NITROGEN 17 mg/dL (7-18)
[2016-10-16 05:50] LABS: ASPARTATE AMINO TRANSFERASE 15 U/L (15-37)
[2016-10-16] MEDS: GABAPENTIN 100 MG CAPSULE PO SCH ×4 (05:51→21:12)
[2016-10-16 08:31] VITALS: BP 135/84
[2016-10-16] MEDS: HEPARIN 5,000 UNITS/ML, 1ML SQ SCH ×2 (08:35→16:30)
[2016-10-16] MEDS: INSULIN DETEMIR 100 UNITS/ML, PEN SQ-INSULIN SCH ×2 (08:36→21:13)
[2016-10-16] MEDS: INSULIN ASPART 100 UNITS/ML, PEN SQ-INSULIN SCH ×4 (08:36→21:14)
[2016-10-16] MEDS: SENNA/DOCUSATE TABLET PO SCH (08:36)
[2016-10-16] MEDS: SODIUM CHLORIDE FLUSH 10ML SYR IVF SCH ×2 (08:36→21:12)
[2016-10-16 13:28] VITALS: BP 153/70
[2016-10-16] MEDS ORDERED: GUAIFENESIN/DM 200-20MG, 10ML UDC PO PRN (16:30)
[2016-10-16] MEDS: CEFTRIAXONE PMX 1GM/50ML 50 ML IV SCH (18:02)
[2016-10-16] MEDS ORDERED: ACETAMINOPHEN 325 MG TABLET PO PRN (18:30)
[2016-10-16] MEDS ORDERED: BISACODYL 10 MG SUPP PR PRN (18:30)
[2016-10-16] MEDS ORDERED: DEXTROSE 50%, 50ML SYRINGE IVPush PRN (18:30)
[2016-10-16] MEDS ORDERED: ONDANSETRON 2MG/ML, 2ML IVPush PRN (18:30)
[2016-10-16] MEDS ORDERED: POLYETHYLENE GLYCOL 17 GM PACKET PO PRN (18:30)
[2016-10-16] MEDS ORDERED: DEXTROSE 4 GM TAB.CHEW PO PRN (18:30)
[2016-10-16] MEDS ORDERED: GLUCAGON 1 MG IM PRN (18:30)
[2016-10-16 18:54] VITALS: BP 176/72
[2016-10-16] MEDS: AZITHROMYCIN 500 MG in SODIUM CHLORIDE 0.9% 250 ML IV SCH (21:13)
[2016-10-16 21:48] VITALS: BP 134/69
[2016-10-17] MEDS: HEPARIN 5,000 UNITS/ML, 1ML SQ SCH ×3 (00:47→16:48)
[2016-10-17 01:43] VITALS: BP 121/72
[2016-10-17] MEDS: SODIUM CHLORIDE 0.9% 1,000 ML IV SCH ×2 (02:03→10:57)
[2016-10-17] MEDS: GABAPENTIN 100 MG CAPSULE PO SCH ×4 (05:51→23:39)
[2016-10-17] MEDS: INSULIN ASPART 100 UNITS/ML, PEN SQ-INSULIN SCH ×3 (07:00→16:00)
[2016-10-17] MEDS: SENNA/DOCUSATE TABLET PO SCH (09:02)
[2016-10-17] MEDS: SODIUM CHLORIDE FLUSH 10ML SYR IVF SCH ×2 (09:02→23:40)
[2016-10-17] MEDS: INSULIN DETEMIR 100 UNITS/ML, PEN SQ-INSULIN SCH (09:03)
[2016-10-17] MEDS ORDERED: MAGNESIUM SULFATE PMX 2GM/50ML 50 ML IV ONE (10:00)
[2016-10-17] MEDS: MAGNESIUM OXIDE 400 MG TABLET PO SCH ×2 (10:55→23:39)
[2016-10-17] MEDS: GUAIFENESIN/DM 200-20MG, 10ML UDC PO PRN (10:57)
[2016-10-17] MEDS: NEUTRA PHOS K 250 MG TABLET PO SCH ×2 (12:20→23:39)
[2016-10-17 16:20] VITALS: BP 151/80
[2016-10-17] MEDS: CEFTRIAXONE PMX 1GM/50ML 50 ML IV SCH (17:50)
[2016-10-17 19:50] VITALS: BP 143/76
[2016-10-17] MEDS: AZITHROMYCIN 500 MG in SODIUM CHLORIDE 0.9% 250 ML IV SCH (23:40)
[2016-10-18] MEDS: INSULIN DETEMIR 100 UNITS/ML, PEN SQ-INSULIN SCH ×3 (00:32→20:44)
[2016-10-18] MEDS: INSULIN ASPART 100 UNITS/ML, PEN SQ-INSULIN SCH ×5 (00:33→20:42)
[2016-10-18] MEDS: HEPARIN 5,000 UNITS/ML, 1ML SQ SCH ×3 (00:34→16:29)
[2016-10-18 02:25] VITALS: BP 137/71
[2016-10-18 05:32] LABS: HEMATOCRIT 29.8 % (34.6-47.8); HEMOGLOBIN 9.5 g/dL (11.7-16.4); WHITE BLOOD COUNT 10.2 x10^3/uL (3.4-10)
[2016-10-18 05:53] LABS: ASPARTATE AMINO TRANSFERASE 26 U/L (15-37); BLOOD UREA NITROGEN 4 mg/dL (7-18)
[2016-10-18] MEDS: SODIUM CHLORIDE 0.9% 1,000 ML IV SCH ×3 (05:53→16:29)
[2016-10-18] MEDS: GABAPENTIN 100 MG CAPSULE PO SCH ×4 (05:55→20:41)
[2016-10-18 07:53] VITALS: BP 137/80
[2016-10-18] MEDS: SODIUM CHLORIDE FLUSH 10ML SYR IVF SCH ×2 (08:47→20:41)
[2016-10-18] MEDS: MAGNESIUM OXIDE 400 MG TABLET PO SCH ×2 (08:48→20:41)
[2016-10-18] MEDS: NEUTRA PHOS K 250 MG TABLET PO SCH ×2 (08:48→20:41)
[2016-10-18] MEDS: POTASSIUM CHLORIDE 10% 20 MEQ/15 ML UDC PO SCH ×2 (08:48→20:42)
[2016-10-18] MEDS: SENNA/DOCUSATE TABLET PO SCH (08:48)
[2016-10-18] MEDS: GUAIFENESIN/DM 200-20MG, 10ML UDC PO PRN ×2 (08:49→16:29)
[2016-10-18] MEDS: POTASSIUM CHLORIDE 20 MEQ in SODIUM CHLORIDE 0.9% 250 ML IV SCH ×3 (11:33→19:43)
[2016-10-18 14:24] VITALS: BP 135/70
[2016-10-18] MEDS: CEFTRIAXONE PMX 1GM/50ML 50 ML IV SCH (18:16)
[2016-10-18 19:56] VITALS: BP 167/86
[2016-10-19] MEDS: AZITHROMYCIN 500 MG in SODIUM CHLORIDE 0.9% 250 ML IV SCH ×2 (00:37→23:53)
[2016-10-19] MEDS: HEPARIN 5,000 UNITS/ML, 1ML SQ SCH ×4 (00:41→23:57)
[2016-10-19] MEDS: GUAIFENESIN/DM 200-20MG, 10ML UDC PO PRN ×2 (00:45→11:13)
[2016-10-19 01:32] VITALS: BP 166/99
[2016-10-19 04:57] LABS: HEMATOCRIT 30.7 % (34.6-47.8); WHITE BLOOD COUNT 10.4 x10^3/uL (3.4-10)
[2016-10-19 05:05] LABS: ASPARTATE AMINO TRANSFERASE 24 U/L (15-37); BLOOD UREA NITROGEN 3 mg/dL (7-18)
[2016-10-19] MEDS: GABAPENTIN 100 MG CAPSULE PO SCH ×4 (05:16→20:41)
[2016-10-19] MEDS: SODIUM CHLORIDE 0.9% 1,000 ML IV SCH ×3 (05:17→20:42)
[2016-10-19] MEDS: INSULIN ASPART 100 UNITS/ML, PEN SQ-INSULIN SCH ×4 (07:00→20:46)
[2016-10-19 07:44] VITALS: BP 137/83
[2016-10-19] MEDS: SODIUM CHLORIDE FLUSH 10ML SYR IVF SCH ×2 (08:46→20:42)
[2016-10-19] MEDS: SENNA/DOCUSATE TABLET PO SCH (08:47)
[2016-10-19] MEDS: POTASSIUM CHLORIDE 10% 20 MEQ/15 ML UDC PO SCH (08:50)
[2016-10-19] MEDS: NEUTRA PHOS K 250 MG TABLET PO SCH ×2 (08:50→20:42)
[2016-10-19] MEDS: MAGNESIUM OXIDE 400 MG TABLET PO SCH ×2 (08:50→20:41)
[2016-10-19] MEDS: INSULIN DETEMIR 100 UNITS/ML, PEN SQ-INSULIN SCH ×2 (08:51→20:45)
[2016-10-19 14:14] VITALS: BP 150/79
[2016-10-19] MEDS ORDERED: POTASSIUM CHLORIDE 20 MEQ TAB.ER.PRT PO ONE (15:30)
[2016-10-19] MEDS: CEFTRIAXONE PMX 1GM/50ML 50 ML IV SCH (18:35)
[2016-10-19 19:32] VITALS: BP 144/72
[2016-10-19] MEDS ORDERED: NEUTRA PHOS K 250 MG TABLET PO SCH (21:00)
[2016-10-20 01:48] VITALS: BP 161/74
[2016-10-20] MEDS: SODIUM CHLORIDE 0.9% 1,000 ML IV SCH (05:38)
[2016-10-20] MEDS: GABAPENTIN 100 MG CAPSULE PO SCH ×4 (05:39→20:56)
[2016-10-20] MEDS: INSULIN ASPART 100 UNITS/ML, PEN SQ-INSULIN SCH ×4 (07:00→20:58)
[2016-10-20 07:43] VITALS: BP 163/73
[2016-10-20] MEDS: SENNA/DOCUSATE TABLET PO SCH (08:40)
[2016-10-20] MEDS: SODIUM CHLORIDE FLUSH 10ML SYR IVF SCH ×2 (08:40→20:55)
[2016-10-20] MEDS: NEUTRA PHOS K 250 MG TABLET PO SCH ×2 (08:44→20:56)
[2016-10-20] MEDS: HEPARIN 5,000 UNITS/ML, 1ML SQ SCH ×2 (08:44→16:14)
[2016-10-20] MEDS: MAGNESIUM OXIDE 400 MG TABLET PO SCH ×2 (08:44→20:56)
[2016-10-20] MEDS: INSULIN DETEMIR 100 UNITS/ML, PEN SQ-INSULIN SCH ×2 (08:45→20:58)
[2016-10-20] MEDS: GUAIFENESIN/DM 200-20MG, 10ML UDC PO PRN (11:55)
[2016-10-20 13:57] VITALS: BP 161/69
[2016-10-20] MEDS: CEFTRIAXONE PMX 1GM/50ML 50 ML IV SCH (18:30)
[2016-10-20 20:24] VITALS: BP 158/69
[2016-10-21] MEDS: HEPARIN 5,000 UNITS/ML, 1ML SQ SCH ×4 (00:06→23:30)
[2016-10-21 03:40] VITALS: BP 150/73
[2016-10-21] MEDS: GABAPENTIN 100 MG CAPSULE PO SCH ×4 (06:16→20:54)
[2016-10-21 07:14] VITALS: BP 167/84
[2016-10-21] MEDS ORDERED: POTASSIUM PHOS 4.4 MEQ/ML IV SCH (07:30)
[2016-10-21] MEDS ORDERED: MAGNESIUM SULFATE PMX 4GM/100M 100 ML IV ONE (07:30)
[2016-10-21] MEDS: INSULIN ASPART 100 UNITS/ML, PEN SQ-INSULIN SCH ×4 (08:00→21:06)
[2016-10-21] MEDS: INSULIN DETEMIR 100 UNITS/ML, PEN SQ-INSULIN SCH ×2 (08:17→21:07)
[2016-10-21] MEDS: SENNA/DOCUSATE TABLET PO SCH (08:18)
[2016-10-21] MEDS: MAGNESIUM OXIDE 400 MG TABLET PO SCH ×2 (08:18→20:55)
[2016-10-21] MEDS: NEUTRA PHOS K 250 MG TABLET PO SCH ×2 (08:18→20:54)
[2016-10-21] MEDS: SODIUM CHLORIDE FLUSH 10ML SYR IVF SCH ×2 (08:19→20:56)
[2016-10-21] MEDS ORDERED: POTASSIUM PHOSPHATE 44 MEQ in SODIUM CHLORIDE 0.9% 500 ML IV ONE (08:30)
[2016-10-21 12:01] VITALS: BP 138/88
[2016-10-21] MEDS: CEFTRIAXONE PMX 1GM/50ML 50 ML IV SCH (19:56)
[2016-10-21 20:31] VITALS: BP 166/92
[2016-10-21] MEDS: AZITHROMYCIN 500 MG in SODIUM CHLORIDE 0.9% 250 ML IV SCH ×2 (23:27)
[2016-10-22 02:31] VITALS: BP 157/91
[2016-10-22 05:15] LABS: HEMOGLOBIN 10.4 g/dL (11.7-16.4); WHITE BLOOD COUNT 9.3 x10^3/uL (3.4-10)
[2016-10-22 05:25] LABS: BLOOD UREA NITROGEN 4 mg/dL (7-18)
[2016-10-22 05:28] LABS: ASPARTATE AMINO TRANSFERASE 15 U/L (15-37)
[2016-10-22] MEDS: GABAPENTIN 100 MG CAPSULE PO SCH ×3 (06:20→16:48)
[2016-10-22 07:40] VITALS: BP 155/89
[2016-10-22] MEDS: INSULIN ASPART 100 UNITS/ML, PEN SQ-INSULIN SCH ×3 (08:03→16:39)
[2016-10-22] MEDS: HEPARIN 5,000 UNITS/ML, 1ML SQ SCH ×2 (08:09→16:49)
[2016-10-22] MEDS: MAGNESIUM OXIDE 400 MG TABLET PO SCH (08:09)
[2016-10-22] MEDS: INSULIN DETEMIR 100 UNITS/ML, PEN SQ-INSULIN SCH (08:09)
[2016-10-22] MEDS: NEUTRA PHOS K 250 MG TABLET PO SCH (08:09)
[2016-10-22] MEDS: SENNA/DOCUSATE TABLET PO SCH (08:10)
[2016-10-22] MEDS: SODIUM CHLORIDE FLUSH 10ML SYR IVF SCH (08:11)
[2016-10-22] MEDS ORDERED: POTASSIUM CHLORIDE 10 MEQ TABLET.ER PO ONE (11:00)
[2016-10-22] MEDS ORDERED: AMOX1TAB64 PO (16:15)
== END 2016-10-22 17:31 | disposition home or self-care (01) | DRG 871 ==
LOC: ED 17:55 → EDIP 18:59 → 3NE 19:52
PROVIDERS: ADMIT Internal Medicine; ATTEND Internal Medicine
PROC: 0T9B70Z Drainage of Bladder with Drainage Device, Via Natural or Artificial Opening (ICD-10-PCS; principal; 2016-10-14)
DX: A41.9 Sepsis, unspecified organism (principal); J18.9 Pneumonia, unspecified organism; N17.9 Acute kidney failure, unspecified; E44.0 Moderate protein-calorie malnutrition; D68.9 Coagulation defect, unspecified; E87.1 Hypo-osmolality and hyponatremia; N10 Acute pyelonephritis; D64.9 Anemia, unspecified; E11.65 Type 2 diabetes mellitus with hyperglycemia; E11.42 Type 2 diabetes mellitus with diabetic polyneuropathy; E78.5 Hyperlipidemia, unspecified; I10 Essential (primary) hypertension; I27.2 Other secondary pulmonary hypertension; M19.90 Unspecified osteoarthritis, unspecified site; Z79.899 Other long term (current) drug therapy; Z68.25 Body mass index [BMI] 25.0-25.9, adult; Z87.81 Personal history of (healed) traumatic fracture
CPT/HCPCS: 36415; 71010; 80053; 81001; 82962; 83036; 83605; 83735; 84100; 85025; 85610; 87040; 87086; 93005; 96360; 96361; J0456; J0696; J1644; J1815; J3480; J3475; J7030; J7040; J7050